=== PATIENT | female | born 1950 | race Caucasian/White ===

== ENCOUNTER 2021-01-02 12:58 | Inpatient (IN) | payer OTHER ==
[~2021-01-02] VITALS: Ht 152.4 cm; Wt 72.1 kg
[2021-01-02 19:27] VITALS: BP 125/54
[2021-01-02] MEDS ORDERED: LORAZEPAM 0.50.5 MG PO (20:13)
[2021-01-02] MEDS ORDERED: NORVASC 2.5 MG2.5 M1 PO (20:15)
[2021-01-02] MEDS ORDERED: CYCLOBENZAPRINE5 MG PO (20:16)
[2021-01-02] MEDS ORDERED: LEVO-T100 MCG PO (20:17)
[2021-01-02] MEDS ORDERED: GLIPIZIDE ER5 MG PO (20:17)
[2021-01-02] MEDS ORDERED: PAXIL20 MG PO (20:18)
[2021-01-02] MEDS ORDERED: ROSUVASTATIN CA20 MG PO (20:18)
[2021-01-02] MEDS ORDERED: ZEGERID 20 MG1 EACH PO (20:19)
[2021-01-02] MEDS ORDERED: TRAMADOL 50 MG50 MG PO (20:19)
--- NOTE | 2021-01-02 20:20 | NUR ---
NEW ADMIT TRANSFER FROM [facility]. C/O LEFT JAW PAIN THAT RADIATED DOWN NECK,ARM, AND CHEST. HEPARIN STARTED AT [place].HEPARIN RATE 960 U/K/W. SEE LAB FRO APTT. NITRO PAST ON RIGHT CHEST. PT WILL BE NPO TONIGHT FOR HEART CATH ON WEDNESDAY MORING. A/OX4, DENIES PAIN, DENIES SOB. AB JUAN C BATHROOM PRIVLEDGES. ADMISSION COMPLETED. CONCSENTS SIGNED. CALL LIGHT AND PERSONAL ITEMS IN REACH.
[2021-01-02 23:51] VITALS: BP 136/56
[2021-01-03] VITALS (12 sets, daily range): BP systolic 116–152; BP diastolic 50–74
--- NOTE | 2021-01-03 04:13 | NUR ---
SLEPT MOST OF SHIFT. HEPARIN GTT MAINTAINED AND ADJUSTED PER PROTOCOL. WORKING ON GOALS AND PLAN OF CARE FOR NOC. PROGRESSING TOWARDS GOALS FOR HEART CATH TODAY. DENIES COMPLAINTS OF CHEST PAIN OR SHORTNESS OF AIR THIS SHIFT. UP AD JUAN TO BATHROOM WITH STEADY GAIT. CONTINUE TO ASSES CLOSELY.
--- NOTE | 2021-01-03 07:06 | EKG ---
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: NATHANIEL : 1950 Requested By: Lacey Davis Order Number: [id number] MD: Rambo Reddy Measurements Intervals [place] Rate: 60 P: -18 MT: 136 QRS: -17 QRSD: 93 T: -26 QT: 433 QTc: 433 Interpretive Statements Sinus rhythm Borderline left axis deviation Borderline repolarization abnormality No previous ECG available for comparison Electronically Signed On 01-03-2021 7:06:20 DELIVERY LEAD by Rambo Reddy [email or web address] <ELECTRONICALLY SIGNED> By: Rambo Reddy MD, [facility] 01/03/21 0706 1556 1556 Rambo Reddy MD, FACC /EPI
--- NOTE | 2021-01-03 07:26 | EKG ---
[place] [address] [facility] [place] [address] ELECTROCARDIOGRAM REPORT Name: JENNI HERNADEZ Room #: 213- ADM IN M.R.#: [id number] Admission: 01/02/21 Attend Phys: Toño Asif MD Discharge: Date of : 48 Report #: [id number] [facility] Test Date: 2021-01-03 Test Time: 07:19:14 Pat Name: JENNI HERNADEZ Department: Room: 213 P Gender: F Braider Tender: NEGRO : 1950 Requested By: Ivan Blanco Order Number: [id number] MD: Ivan Blanco Measurements Intervals [place] Rate: 60 P: -14 [place]: 148 QRS: -19 QRSD: 85 T: -33 QT: 427 QTc: 427 Interpretive Statements Sinus rhythm Borderline left axis deviation Poor R wave progression Nonspecific T abnormalities, inferior leads Compared to ECG 01/02/2021 15:56:34 No significant change was found Electronically Signed On 01-03-2021 7:26:33 SHEET METAL CONTRACTOR by Ivan Blanco [email or web address] <ELECTRONICALLY SIGNED> By: Ivan Blanco MD, [facility] 01/03/21725 8 8 Ivan Blanco MD, [facility] /EPI
[2021-01-03 07:51] LABS: ABSOLUTE NEUTROPHILS 4.5 thou/uL (1.4-8.2); BASOPHILS 0.8 % (0.0-2.0); EOSINOPHILS 3.3 % (0.0-3.0); HEMATOCRIT 38.3 % (37.0-47.0); HEMOGLOBIN 12.5 gm/dL (12.0-15.0); LYMPHOCYTES 35.2 % (24.0-44.0); MCH 28.9 pg (26.0-34.0); MCHC 32.7 g/dL (28.0-37.0); MCV 88.5 fL (80.0-100.0); MONOCYTES 5.7 % (1.0-8.0); PLATELET COUNT 240 thou/uL (150-400); RBC 4.32 mil/uL (4.20-5.00); RDW 14.5 % (10.5-14.5); WBC 8.1 thou/uL (4.0-11.0)
--- NOTE | 2021-01-03 08:01 | 2DMMODE ---
[place] [address] 2 D/M-MODE ECHOCARDIOGRAM Name: JENNI HERNADEZ Room #: 213-P ADM IN M.R.#: [id number] Admission: 01/02/21 Attend Phys: Toño Asif MD Discharge: Date of : 48 Report #: [id number] THIS REPORT FOR: cc: Benigno Altman MD, Robert M. MD Lundgren, Craig H. MD [facility] ~ APPROVED REPORT Study performed: 01/03/2021 06:50:33 EXAM: Comprehensive 2D, Doppler, and color-flow Echocardiogram Patient Location: Bedside Room #: 213 Status: routine BSA: 1.70 HR: 62 bpm BP: 118/60 mmHg Rhythm: NSR Other Information Study Quality: Adequate Indications Chest pain, Non Q DC. Hx: HTN, HLP, DM. 2D Dimensions RVDd: 35.05 mm IVSd: 10.47 (7-11mm) LVOT Diam: 18.62 (18-24mm) LVDd: 40.58 mm PWd: 10.52 (7-11mm) Ascending Ao: 28.24 (22-36mm) LVDs: 29.51 (25-40mm) Left Atrium: 39.28 (27-40mm) Aortic Root: 33.83 mm Volumes Left Atrial Volume (Systole) Single Plane 4CH: 51.85 mL Single Plane 2CH: 60.08 mL LA ESV Index: 35.00 mL/m2 Aortic Valve AoV Peak Vladimir.: 2.05 m/s AO Peak Gr.: 16.81 mmHg LVOT Max P.07 mmHg AO Mean Gr.: 8.15 mmHg [address] [place] [address] 2 D/M-MODE ECHOCARDIOGRAM Name: JENNI HERNADEZ Room #: 213-P [facility]#: [id number] Admission: 01/02/21 Attend Phys: Toño Asif MD Discharge: Date of : 48 Report #: [id number] AO V2 Mean: 1.33 m/s LVOT Max V: 1.23 m/s AO V2 VTI: 42.79 cm ADILENE Vmax: 1.64 cm2 Mitral Valve E/A Ratio: 0.8 MV Decel. Time: 272.30 ms MV E Max Vladimir.: 1.05 m/s MV A Vladimir.: 1.26 m/s MV PHT: 78.97 ms IVRT: 73.82 ms Pulmonary Valve PV Peak Vladimir.: 1.10 m/s PV Peak Gr.: 4.86 mmHg Pulmonary Vein P Vein S: 0.85 m/s P Vein A: 0.31 m/s P Vein D: 0.64 m/s P Vein A Dur.: 101.5 msec P Vein S/D Ratio: 1.33 Tricuspid Valve TR Peak Vladimir.: 2.35 m/s RAP Estimate: 5.00 mmHg TR Peak Gr.: 22.00 mmHg PA Pressure: 27.00 mmHg Left Ventricle The left ventricle is normal size. There is normal LV segmental wall motion. There is normal left ventricular wall thickness. Left ventricular systolic function is normal. LVEF is 55-60%. Mild diastolic dysfunction is present. Right Ventricle Right ventricle is not well visualized but appears grossly normal. Atria The left atrium size is normal. The right atrium size is normal. Aortic Valve The aortic valve is mildly calcified, trileaflet. Mild stenosis. No aortic regurgitation is present. Calculated aortic valve area is 1.6 cm2 (Peak gradient of 17 mmHg, mean pressure gradient of 8 mmHg) Mitral Valve [place] [id number] 2 D/M-MODE ECHOCARDIOGRAM Name: JENNI HERNADEZ Room #: 213-P [facility] IN ..#: [id number] Admission: 01/02/21 Attend Phys: Toño Asif MD Discharge: Date of : 48 Report #: [id number] Mild mitral annular calcification. Mild mitral regurgitation. No evidence of mitral valve stenosis. Tricuspid Valve The tricuspid valve is normal in structure. Trace tricuspid regurgitation. Estimated PAP is 25-30mmHg. Pulmonic Valve The pulmonary valve is normal in structure. There is no pulmonic valvular regurgitation. Great Vessels The aortic root is normal in size. The ascending aorta is normal in size. IVC is normal in size and collapses >50% with inspiration. Pericardium There is no pericardial effusion. <Conclusion> Left ventricular systolic function is normal. There is normal LV segmental wall motion. LVEF is 55-60%. Mild diastolic dysfunction is present. The aortic valve is mildly calcified, trileaflet. Mild stenosis. No insufficiency Calculated aortic valve area is 1.6 cm2 (Peak gradient of 17 mmHg, mean pressure gradient of 8 mmHg) Mild mitral annular calcification. Mild mitral regurgitation. Trace tricuspid regurgitation. Estimated pulmonary artery pressure of 25-30mmHg. There is no pericardial effusion. <ELECTRONICALLY SIGNED> By: Ivan Blanco MD, FACC 01/03/21800 0 0 Ivan Blanco MD, FACC /INF
[2021-01-03 08:15] LABS: ANION GAP 5 mmol/L (7-16); BUN 15 mg/dL (7-18); CHLORIDE 105 mmol/L (98-107); CHOLESTEROL 144 mg/dL (<200); CO2 29 mmol/L (21-32); CREATININE 0.8 mg/dL (0.6-1.0); GLUCOSE 130 mg/dL (74-106); HDL CHOLESTEROL 67 mg/dL (>40); LDL CHOLESTEROL 53 mg/dL (<100); MAGNESIUM 2.2 mg/dL (1.8-2.4); SODIUM 139 mmol/L (136-145); TC:HDL 2.1 Ratio (Not establshd); TRIGLYCERIDE 123 mg/dL (<150); TROPONIN-I 0.26 ng/mL (<0.06); VLDL 25 mg/dL (<40)
[2021-01-03 10:17] LABS: FOLIC ACID 16.1 ng/mL (8.6-58.9)
--- NOTE | 2021-01-03 11:30 | CATHLAB ---
[facility] [place] [address] INVASIVE PROCEDURE REPORT Name: JENNI HERNADEZ Room #: 213-P ADM IN M.R.#: [id number] Admission: 01/02/21 Attend Phys: Toño Asif MD Discharge: Date of : 48 Report #: [id number] THIS REPORT FOR: cc: Benigno Altman MD, Robert M. MD Lundgren, Craig H. MD [facility] ~ APPROVED REPORT Study performed: 01/03/2021 08:59:18 Patient Details Patient Status: In-Patient Room #: 213 The patient is a 70 year-old female Event Personnel Ivan Blanco Geothermal Powerplant Mechanic Helper, Darshana Sanchez RN RN, Meredith Jaquez RN RN, Nia Amaya Partnoy, Nancy RTR, CURING SUPERVISOR Monitor Procedures Performed Art Access - R femoral artery* Left Heart Cath w/or w/o Coronaries [id number] [facility] w/wo Plasty Single RCA 860310 16150 Initial Mod Sed Same Phys/QHP Gr5y 103836 68485 Mod Sed Same Phys/QHP Ea [id number] Hemostasis w/ Mynx Indication Non-STEMI (>6 hrs to = 12 hrs), Chest pain Procedure Narrative The patient was brought urgently to the Cardiac Catheterization Laboratory and was prepped and draped in a sterile manner. The Right Groin^ was infiltrated with 1% Lidocaine subcutaneous anesthesia. A PINNACLE 6FR Sheath #[id number] sheath was inserted into the RFA^. Coronary angiography was performed using coronary diagnostic catheters. The right coronary system was accessed and visualized with a JR4 catheter. The left coronary system was accessed and visualized with a JL4 catheter. The left ventricle was accessed and visualized with a ANGLED PIGTAIL catheter. Left ventricular/Aortic Valve gradient assessed via catheter pullback. Left ventriculogram was performed in 30 degree projection. Closure device was deployed with a 6 Fr 6/7F MYNXGRIP. The patient tolerated the procedure well and there were no complications associated with the procedure. There was no hematoma. [facility] [address] [place] [address] INVASIVE PROCEDURE REPORT Name: JENNI HERNADEZ Room #: 213-P [facility]#: [id number] Admission: 01/02/21 Attend Phys: Toño Asif MD Discharge: Date of : 48 Report #: [id number] Intraoperative Conscious Sedation Sedation start time: 09:12 Case end Time: 10:22 Fentanyl 50 mcg Versed 1 mg Fluoro Time: 4.80 minutes Dose: DAP 9556.00 cGycm2 1264 mGy Contrast Type and Amount: Omnipaque 160 ml Coronary Angiography The patient's coronary anatomy is right dominant. Diagnostic Cath Left Main Normal left main LAD Mild 20-30% proximal to mid LAD plaquing. Diagonal 1 Moderate sized bifurcating diagonal branch with 50-60% proximal stenosis Circumflex Nondominant circumflex with occluded second marginal branch with faint left to left collateralization Right Coronary Dominant right coronary with critical 99% proximal stenosis. Mild mid and distal plaquing R PDA Normal posterior descending RPLV Normal, large posterior lateral branch Left Ventriculography The left ventricle is normal in size with normal contractility. The left ventricular ejection fraction is estimated to be 60-65%. Left ventricular wall motion abnormalities are present. There is no mitral insufficiency. Mild inferobasal hypokinesis. Hemodynamics The aortic pressure is 137/57 mmHg with a mean of 87 mmHg. The left ventricular pressure is 135/9 mmHg with a mean of mmHg. The left ventricular end diastolic pressure is 27 mmHg. PCI Technique Lesion Anticoagulation was achieved with Heparin, Integrilin. Patient was preloaded with Plavix. Percutaneous coronary intervention was performed on the proximal right coronary artery. The lesion stenosis prior to intervention was 99% with MANOHAR 2 flow. A LAUNCHER 6FR JR 4 #[id number] Guide Catheter was used to engage the ostium. A Luge Wire .014 x 182CM #[id number] Interventional Guidewire was used to cross the lesion. BALLOON DILATION A Balloon catheter Euphora RX 2.5 x 12 #[id number] was inserted and [facility] [address] [place] [address] INVASIVE PROCEDURE REPORT Name: JENNI HERNADEZ Room #: 213-P [facility] IN M.R.#: [id number] Admission: 01/02/21 Attend Phys: Toño Asif MD Discharge: Date of : 48 Report #: [id number] inflated up to 12.00atm for 15seconds. Additional Inflation: 14.00atm for 24seconds. STENT DEPLOYMENT A drug-eluting stent XIENCE HARRISON RX 3.0 X 12 #[id number] was inserted and inflated up to 16.00atm for 24seconds. POST STENT DEPLOYMENT BALLOON DILATION A Balloon catheter TREK NC RX 3.0 X 8 #[id number] was inserted and inflated up to 18.00atm for 28seconds. Additional Inflation: 22.00atm for 32seconds. Additional Inflation: 22.00atm for 18seconds. Final angiography reveals 0 % stenosis with MANOHAR 3 flow. Conclusion 1. Normal left ventricular systolic function with minimal inferior wall hypokinesis. EF 60%. 2. Normal left main 3. Mild 20-30% proximal to mid LAD plaquing. 50-60% diagonal branch stenosis 4. Small non-dominant circumflex with occluded OM2 with collateralization 4. Critical proximal right coronary stenosis treated with a 3.0 x 12 mm Xience medicated stent, post-dilated to 3.25mm Recommendations Cardiac Rehabilitation Referral Aggressive Medical Therapy <ELECTRONICALLY SIGNED> By: Ivan Blanco MD, [facility] 01/03/21 1130 29 Ivan Blanco MD, FAC /INF
[2021-01-03] MEDS ORDERED: CLOPIDOGREL75 MG PO (11:47)
[2021-01-03] MEDS ORDERED: METOPROLOL SUCC25 M1 PO (11:47)
[2021-01-03] MEDS ORDERED: LISINOPRIL20 MG PO (11:47)
--- NOTE | 2021-01-03 12:35 | EKG ---
[address] [address] ELECTROCARDIOGRAM REPORT Name: JENNI HERNADEZ Room #: 213- ADM IN M.R.#: [id number] Admission: 01/02/21 Attend Phys: Toño Asif MD Discharge: Date of : 48 Report #: [id number] [facility] Test Date: 2021-01-03 Test Time: 11:08:15 Pat Name: JENNI HERNADEZ Department: Room: 213 P Gender: F Python Architect: NEGRO : 1950 Requested By: Ivan Blanco Order Number: [id number] MD: Davidson Yen Measurements Intervals [place] Rate: 53 P: 50 ND: 163 QRS: -27 QRSD: 86 T: -37 QT: 451 QTc: 424 Interpretive Statements Sinus rhythm Borderline left axis deviation Borderline repolarization abnormality Compared to ECG 01/03/2021 07:19:14 Poor R-wave progression no longer present T-wave abnormality no longer present Electronically Signed On 01-03-2021 12:35:45 RECREATION ASSISTANT by Davidson Yen [email or web address] <ELECTRONICALLY SIGNED> By: Davidson Yen MD 01/03/21 1235 1108 1108 Davidson Yen MD /EPI
--- NOTE | 2021-01-03 19:51 | NUR ---
ASSUMED CARE AT CHANGE OF SHIFT. HEART CATH WITH STEND PLACED. RIGHT GROIN INTACT. DENIES PAINS, DENIES SOB. CARDIAC COMMUNICATIONS CONSULTANT ROUNDED AND PROVIDED EDUCTION. PLAN TO DC TOMORROW.
[2021-01-04 00:45] VITALS: BP 123/48
[2021-01-04 04:45] VITALS: BP 136/63
--- NOTE | 2021-01-04 05:07 | NUR ---
PT RESTING QUIETLY THRU THE NOC, RIGHT GROIN WITH MYNX CLOSURE REMAINS CDI, RPN PAIN MED GIVEN AT HS FOR C/O DECKER, VSS, HOPES TO GO HOME TODAY, WILL CON'T TO MONITOR PER PPOC.
[2021-01-04 05:57] LABS: HEMATOCRIT 38.6 % (37.0-47.0); HEMOGLOBIN 12.6 gm/dL (12.0-15.0); MCH 29.2 pg (26.0-34.0); MCHC 32.7 g/dL (28.0-37.0); MCV 89.3 fL (80.0-100.0); RBC 4.33 mil/uL (4.20-5.00); RDW 14.4 % (10.5-14.5); WBC 7.6 thou/uL (4.0-11.0)
[2021-01-04 06:12] LABS: ALBUMIN 2.9 g/dL (3.4-5.0); CALCIUM 9.2 mg/dL (8.5-10.1); CREATININE 0.7 mg/dL (0.6-1.0); POTASSIUM 4.1 mmol/L (3.5-5.1); TOTAL BILIRUBIN 0.3 mg/dL (0.2-1.0); TOTAL PROTEIN 6.1 g/dL (6.4-8.2); TROPONIN-I 0.49 ng/mL (<0.06)
[2021-01-04 08:00] VITALS: BP 130/53
--- NOTE | 2021-01-04 10:57 | EKG ---
[address] [place] [address] ELECTROCARDIOGRAM REPORT Name: JENNI HERNADEZ Room #: 213- ADM IN M.R.#: [id number] Admission: 01/02/21 Attend Phys: Toño Asif MD Discharge: Date of : 48 Report #: [id number] 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: : 1950 Requested By: Ivan Blanco Order Number: [id number] MD: Davidson Yen Measurements Intervals [place] Rate: 50 P: 47 SD: 165 QRS: -36 QRSD: 85 T: -36 QT: 441 QTc: 403 Interpretive Statements Sinus rhythm Left axis deviation Borderline repolarization abnormality Baseline wander in lead(s) III,aVL,V2,V5,V6 Compared to ECG 01/03/2021 11:08:15 No significant changes Electronically Signed On 01-04-2021 10:56:50 WIRE STITCHER MACHINE by Davidson Yen [email or web address] <ELECTRONICALLY SIGNED> By: Davidson Yen MD 01/04/21 1056 1009 1009 Davidson Yen MD /EPI
[2021-01-04] MEDS ORDERED: GLIPIZIDE ER5 MG PO (11:24)
[2021-01-04 11:45] VITALS: BP 136/63
[2021-01-04 12:00] VITALS: BP 120/46
--- NOTE | 2021-01-04 13:31 | NUR ---
ASSESSMENT CHARTED. PT ALERT ND ORIENTED. VSS. DENIED HAVING PAIN OR DISCOMFORT. RIGHT GROIN INCISION C/D/I. NO HEMATOMA NOTED. ORDERS GIVEN TO DISCHARGE PT TO HOME. DISCHARGE INSTRUCTIONS GIVEN TO PT. PT VERBERLISED UNDERSTANDING.
== END 2021-01-04 13:36 | disposition home or self-care (01) | DRG 246 ==
LOC: 2N 12:58
PROVIDERS: Internal Medicine; Nurse Practitioner; ADMIT Hospitalist; ATTEND Hospitalist
DX: I21.4 Non-ST elevation (NSTEMI) myocardial infarction (principal); I50.31 Acute diastolic (congestive) heart failure; E66.9 Obesity, unspecified; Z20.822 Contact with and (suspected) exposure to COVID-19; I10 Essential (primary) hypertension; E78.5 Hyperlipidemia, unspecified; E11.9 Type 2 diabetes mellitus without complications; E03.9 Hypothyroidism, unspecified; F41.9 Anxiety disorder, unspecified; I25.10 Atherosclerotic heart disease of native coronary artery without angina pectoris; K21.9 Gastro-esophageal reflux disease without esophagitis; Z90.49 Acquired absence of other specified parts of digestive tract; Z88.6 Allergy status to analgesic agent; Z68.31 Body mass index [BMI] 31.0-31.9, adult; Z90.710 Acquired absence of both cervix and uterus; Z82.49 Family history of ischemic heart disease and other diseases of the circulatory system; Z79.82 Long term (current) use of aspirin; Z79.899 Other long term (current) drug therapy
CPT/HCPCS: 10081

== ENCOUNTER → 2021-02-07 | Outpatient (CLI) | payer OTHER ==
[~2021-02-07] MED LIST: CLOPIDOGREL75 MG PO; CYCLOBENZAPRINE5 MG PO; GLIPIZIDE ER5 MG PO; LEVO-T100 MCG PO; LISINOPRIL20 MG PO; LORAZEPAM 0.50.5 MG PO; METOPROLOL SUCC25 M1 PO; NORVASC 2.5 MG2.5 M1 PO; PAXIL20 MG PO; ROSUVASTATIN CA20 MG PO; TRAMADOL 50 MG50 MG PO; ZEGERID 20 MG1 EACH PO
== END ==
LOC: SJCVC 11:01
PROVIDERS: ATTEND Internal Medicine
DX: R00.1 Bradycardia, unspecified (principal); I25.10 Atherosclerotic heart disease of native coronary artery without angina pectoris; I10 Essential (primary) hypertension; E78.5 Hyperlipidemia, unspecified; E11.9 Type 2 diabetes mellitus without complications; G47.33 Obstructive sleep apnea (adult) (pediatric); Z79.899 Other long term (current) drug therapy; K21.9 Gastro-esophageal reflux disease without esophagitis; I25.2 Old myocardial infarction; E66.9 Obesity, unspecified; Z68.34 Body mass index [BMI] 34.0-34.9, adult; Z79.82 Long term (current) use of aspirin; Z88.5 Allergy status to narcotic agent; Z95.5 Presence of coronary angioplasty implant and graft

== ENCOUNTER → 2021-10-15 | Outpatient (CLI) | payer OTHER | LOC: SJCVC 11:06 | PROVIDERS: ATTEND Internal Medicine | DX: R00.1 Bradycardia, unspecified (principal); I25.10 Atherosclerotic heart disease of native coronary artery without angina pectoris; I10 Essential (primary) hypertension; I35.0 Nonrheumatic aortic (valve) stenosis; E78.5 Hyperlipidemia, unspecified; E11.9 Type 2 diabetes mellitus without complications; G47.33 Obstructive sleep apnea (adult) (pediatric); K21.9 Gastro-esophageal reflux disease without esophagitis; I21.9 Acute myocardial infarction, unspecified; E66.9 Obesity, unspecified; Z68.34 Body mass index [BMI] 34.0-34.9, adult; Z90.49 Acquired absence of other specified parts of digestive tract; Z98.61 Coronary angioplasty status; Z98.890 Other specified postprocedural states; Z88.5 Allergy status to narcotic agent; Z79.82 Long term (current) use of aspirin; Z79.899 Other long term (current) drug therapy ==